=== PATIENT | female | born 1995 | race Hispanic/Latino ===

== ENCOUNTER 2018-04-03 09:02 | Emergency (ER) | payer BC ==
[~2018-04-03] VITALS: Ht 154.9 cm; Wt 70.3 kg
[~2018-04-03 09:02] MED LIST: CLINDAMYCIN HC150 MG PO; NKM; TYLENOL WITH C1 EACH PO
== END 2018-04-03 09:39 | disposition home or self-care (01) ==
LOC: FSED 09:02
DX: N30.01 Acute cystitis with hematuria (principal)
CPT/HCPCS: 81003; 81025; 99283

== ENCOUNTER 2019-09-23 13:12 | Emergency (ER) | payer BC ==
[~2019-09-23] VITALS: Ht 154.9 cm; Wt 83.9 kg
--- OUTSIDE RECORDS SUMMARY | 2019-09-23 13:16 | XMS REPORT | Continuity of Care Document ---
Author Author [employer] Address Unknown Phone Unavailable Care Team Providers Care Portainer Operator Name Role Phone [employer] Unavailable Un available Problems Problem Status Onset Date Classification Date Reported Comments Source Moderate episode of recurrent major depressive disorde r Active Problem 07/20/2019 [facility] Anxiety Active Problem 07/20/2019 [facility] Nonintractable episodic headache, unspec ified headache type Active Diag nosis 05/09/2019 [facility] Hair loss Active Diagnosis 05/09/2019 [facility] Medications Medication Details Route Status Patient Instructions Ordering Provider Order Date Source Sertraline HCl 1 tablet Orally Active 50 MG Orally Once a day Anshu 05/08/2019 [facility] Sertraline HCl 1 tablet Orally Active 100 MG Orally Once a da y Edson 05/08/2019 [facility] Sertraline HCl 1 tablet Orally Active 50 mg Orally Once a day [place] 12/28/2017 [facility] Allergies, Adverse Reactions, Alerts Substance Category Reaction Severity Reaction type Status Date Reported Comments Source N.K.D.A. Adverse Reaction Info Not Available Adverse Reaction 06/12/2019 [facility] Immunizations No Data Provided for This Section Results No Data Provided for This Section Pathology Reports No Data Provided for This Section Diagnostic Reports No Data Provided for This Section Consultation Notes No Data Provided for This Section Discharge Summaries No Data Provided for This Section History and Physicals No Data Provided for This Section Vital Signs Vital Sign Value Date Comments Source Weight 161 06/12/2019 [facility] Height 63 0 06/12/2019 [facility] Heart Rate 69 06/12/2019 [facility] Diastolic (mm Hg) 78 06/12/2019 [facility] Systolic (mm Hg) 110 06/12/2019 [facility] Weight 164 05/08/2019 [facility] Height 63 0 05/08/2019 [facility] Heart Rate 87 05/08/2019 [facility] Diastolic (mm Hg) 78 05/08/2019 [facility] Systolic (mm Hg) 118 05/08/2019 [facility] Encounters No Data Provided for This Section Procedures No Data Provided for This Section Assessment and Plan No Data Provided for This Section Plan of Care No Data Provided for This Section Social History No Data Provided for This Section Family History No Data Provided for This Section Advance Directives No Data Provided for This Section Functional Status No Data Provided for This Section
--- OUTSIDE RECORDS SUMMARY | 2019-09-23 13:16 | XMS REPORT ---
Author Author Geraldine Brasher Organization [employer] Address Unknown Phone Unavailable Care Team Providers Care Rope Laying Machine Operator Name Role Phone Candi Brasher CP Unavailable Allergies, Adverse Reactions, Alerts Substance Reaction Event Type N.K.D.A. Info Not Available Non Drug Allergy Problems Problem Type Condition Code Onset Dates Condition Statu s Problem Moderate episode of recurrent major depressive disorde r F33.1 Active Problem Anxiety F41.9 Active Assessment Anxiety F41.9 Active Assessment Moderate episode of recurrent major depressive disorde r F33.1 Active Medications Medication Code System Code Instructions Start Date End Date Status Dosage Sertraline HCl [facility] [id number] 50 MG Orally Once a day May 08, 2019 Active 1 tablet Vital Signs Date/Time: Jun 12, 2019 BMI 28.52 Index Weight 161 lbs Height 63 in Cardiac Monitoring Heart Rate 69 /min Blood Pressure Diastolic 78 mm Hg Blood Pressure Systolic 110 mm Hg Results No Known Results Summary Purpose [employer] Submission
--- OUTSIDE RECORDS SUMMARY | 2019-09-23 13:16 | XMS REPORT ---
Author Author Geraldine Brasher Organization [employer] Address Unknown Phone Unavailable Care Team Providers Care Maintenance Services Dispatcher Name Role Phone Candi Brasher CP Unavailable Allergies, Adverse Reactions, Alerts Substance Reaction Event Type N.K.D.A. Info Not Available Non Drug Allergy Problems Problem Type Condition Code Onset Dates Condition Statu s Problem Moderate episode of recurrent major depressive disorde r F33.1 Active Problem Anxiety F41.9 Active Assessment Anxiety F41.9 Active Assessment Nonintractable episodic headache, unspecified headache type R51 Active Assessment Hair loss L65.9 Active Medications Medication Code System Code Instructions Start Date End Date Status Dosage Sertraline HCl [facility] [id number] 50 mg Orally Once a day May 08, 2019 Active 1 tablet Sertraline HCl ND [id number] 50 mg Orally Once a day Dec 28, 2017 Active 1 tablet Vital Signs Date/Time: May 08, 2019 BMI 29.05 Index Weight 164 lbs Height 63 in Cardiac Monitoring Heart Rate 87 /min Blood Pressure Diastolic 78 mm Hg Blood Pressure Systolic 118 mm Hg Results No Known Results Summary Purpose [employer] Submission
--- OUTSIDE RECORDS SUMMARY | 2019-09-23 13:16 | XMS REPORT ---
Author [facility] Organization [facility] Address [address] [place] [address] Phone Unavailable Care Team Providers Care Tank Crewmember Name Role Phone NO, PCP PCP Unavailable Payers Payer Name Policy Type Policy Number Effective Date Expiration Date S [facility] [id number] 2003 00:00:00 [facility] Problems Condition Name Condition Details Condition Category Status Onset Date Resolution Date Last Treatment Date Treating Clinician Comments Source Moderate episode of recurrent major depressive disorde r Moderate episode of recurrent major depressive disorder Active Problem 07/20/2019 [facility] Problem Active 2 02:03:43 [facility] Anxiety Anxi ety Active Problem 07/20/2019 [facility] Problem Active 2019-07-20 02:03:43 [facility] Nonintractable episodic headache, unspecified headache type Nonintractable episodic headache, unspecified headache type Active Diagnosis 05/09/2019 [facility] Diagnosis Active 2019-05-09 03:02:43 [facility] Hair loss Hair loss Active Diagnosis 05/09/2019 [facility] Diagnosis Active 2019-05-09 03:02:43 [facility] Allergies, Adverse Reactions, Alerts Allergy Name Allergy Type Status Severity Reaction(s) Onset Date Inacti ve Date Treating Clinician Comments Source N.Beverly.Ruthy.A. N.K.Ruthy.A. Active Info Not Available 2019-06-12 00:00:00 [facility] Medications Ordered Medication Name Filled Medication Name Start Date Stop Da te Current Medication? Ordering Clinician Indication Dosage Frequency Signature (SIG) Comments Components Source Sertraline HCl 2019-05-08 00:00:00 Yes Candi Brasher 1 tablet [facility] Sertraline HCl 2019-05-08 00:00:00 Yes Candi Sandhu 1 tablet [facility] Sertraline HCl 2017-12-28 00:00:00 Yes Candi Brasher 1 tablet [facility] Acetaminophen With Codeine (Tylenol With Codeine #3 Tablet) 1 Each Tablet, 300 Mg Oral Acetaminophen With Codeine (Tylenol With Codeine #3 Tablet) 1 Each Tablet, 300 Mg Oral 2018-04-03 00:00:00 No 300 Every 4 Hours as needed for Pain [facility] Clindamycin Hcl 150 Mg Capsule, 300 Mg Oral Clindamyci n Hcl 150 Mg Capsule, 300 Mg Oral 2018-04-03 00:00:00 No 300 Every 8 Hours [facility] No Known Medications ., No Known Medications ., 2018-04-03 00:00 :00 No [facility] Vital Signs Vital Name Observation Time Observation Value Comments Source Weight 2019-06-12 15:15:00 [facility] Height 2019-06-12 15:15:00 [facility] Heart Rate 2019-06-12 15:15:00 [facility] Diastolic (mm Hg) 2019-06-12 15:15:00 [facility] Systolic (mm Hg) 2019-06-12 15:15:00 [facility] Weight 2019-05-08 15:15:00 [facility] Height 2019-05-08 15:15:00 [facility] Heart Rate 2019-05-08 15:15:00 [facility] Diastolic (mm Hg) 2019-05-08 15:15:00 [facility] Systolic (mm Hg) 2019-05-08 15:15:00 [facility] Procedures This patient has no known procedures. Encounters Start Date/Time End Date/Time Encounter Type Admission Type [facility] Care Department Encounter ID Source 2019-09-23 13:15:53 Outpatient MHIEALT MHIEALT [id number] [facility] 2019-07-19 11:29:00 2019-07-19 11:29:00 Outpatient [facility] [id number] [email or web address] 2019-06-12 09:15:00 2019-06-12 09:15:00 Outpatient [facility] [id number] [email or web address] 2019-05-08 09:15:00 2019-05-08 09:15:00 Outpatient [facility] [id number] [email or web address] 2018-04-03 09:02:00 2018-04-03 09:39:00 Departed Emergency Room [facility] [id number] [facility] Results This patient has no known results.
--- OUTSIDE RECORDS SUMMARY | 2019-09-23 13:16 | XMS REPORT ---
Author Author Geraldine Sandhu Organization [employer] Address Unknown Phone Unavailable Care Team Providers Care Pump House Engineer Name Role Phone Candi Sandhu CP Unavailable Allergies No Known Allergies Problems Problem Type Condition Code Onset Dates Condition Statu s Problem Moderate episode of recurrent major depressive disorde r F33.1 Active Problem Anxiety F41.9 Active Assessment Anxiety F41.9 Active Medications Medication Code System Code Instructions Start Date End Date Status Dosage Sertraline HCl [facility] [id number] 100 MG Orally Once a day May 08, 2019 Active 1 tablet Results No Known Results Summary Purpose [employer]Works Submission
[2019-09-23] MEDS ORDERED: CORTISPORIN-TC10 M1 EACH EAR (14:44)
[2019-09-23] MEDS ORDERED: AUGMENTIN 875-1 EACH PO (14:44)
--- NOTE | 2019-09-23 14:49 | Emergency Department Note ---
History of Present Illnes History of Present Illness Chief Complaint: bilateral ear pain s/p swimming in a pool History of Present Illness This is a 23 year old female . Historian: Patient Arrival Mode: Car History limited by: condition of the patient (normal) Onset (how long ago): week(s) (1) Location: bilateral ear pain Radiation: non-radiation Severity: moderate Onset quality: gradual Duration (how long): week(s) (1) Timing of current episode: constant Progression: worsening Chronicity: new Context: recent illness, recent surgery, recent immobilization, recent travel, trauma/injury, new medications, hx of DVT/PE, non-compliance w/ medications Relieving factors: none Exacerbating factors: none Associated symptoms: denies other symptoms Treatments prior to arrival: none Risk factors: n/a Past Medical/Family History Physician Review I have reviewed the patient's past medical and family history. Any updates have been documented here. Past Medical History Recent Fever: No Clinical Suspicion of Infectio: No New/Unexplained Change in Ment: No Past Medical History: None Past Surgical History: Other Surgery: removal of cyst on neck 2 C-SECTIONS Social History Smoking Cessation: Former smoker Any Illegal Drug Use: No TB Exposure/Symptoms: No Physically hurt or threatened: No Family History Family history of heart diseas: No Other Last Tetanus: utd Any Pre-Existing Lines (PICC,: No Is patient up to date on immun: No Review of Systems Review of Systems Constitutional: no symptoms EENTM: as per HPI, ear pain Cardiovascular: no symptoms Respiratory: no symptoms Gastrointestinal: no symptoms Genitourinary: no symptoms Musculoskeletal: no symptoms Neurological: no symptoms Psychological: no symptoms Endocrine: no symptoms Hematological/Lymphatic: no symptoms Review of other systems All other systems reviewed and negative. Physical Exam Related Data Allergies: Coded Allergies: No Known Drug Allergies (Verified Allergy, Unknown, 04/21/10) Vital signs reviewed: Yes Physical Exam CONSTITUTIONAL Constitutional: well-developed, well-nourished HENT HENT: normocephalic, atraumatic, oropharynx clear/moist, nose normal, other (bilateral tragus tenderness, + bilateral erythema) HENT L/R: left ext ear normal, right ext ear normal EYES Eyes: PERRL, conjunctivae normal NECK Neck: ROM normal PULMONARY Pulmonary: effort normal, breath sounds normal CARDIOVASCULAR Cardiovascular: regular rhythm, heart sounds normal, capillary refill normal, normal rate GASTROINTESTINAL Abdominal: soft, nontender, bowel sounds normal GENITOURINARY Genitourinary: exam deferred SKIN Skin: warm, dry MUSCULOSKELETAL Musculoskeletal: ROM normal NEUROLOGICAL Neurological: alert, oriented x 3, no gross motor or sensory deficits PSYCHOLOGICAL Psychological: mood/affect normal, judgement normal Critical Care Time Subsequent provider I assumed direction of critical care for this patient from another provider of my specialty. Assessment & Plan Assessment & Plan Final Impression: (1) Otitis externa of both ears Assessment & Plan rx corticosporin/augmentin Depart Disposition: HOME, SELF-shelter Meds Active Scripts Amoxicillin/Potassium Clav (AUGMENTIN 875-125 TABLET) 1 Each Tablet, 875 MG PO Q12H for 10 Days, #20 TAB Prov:ADIA BOWMAN 09/23/19 Neomyc/Colist/Hydrocort/Thonzn (Cortisporin-Tc Ear Suspension) 10 Ml Drops.susp, 4 DROP EACH EAR Q6H for 10 Days, #1 BOTTLE 1 Refill Prov:ADIA BOWMAN 09/23/19 ADIA BOWMAN September 23, 2019 14:49
== END 2019-09-23 15:46 | disposition home or self-care (01) ==
LOC: FSED 13:12
DX: H60.93 Unspecified otitis externa, bilateral (principal)
CPT/HCPCS: 99282